=== PATIENT | male | born 1960 ===

== ENCOUNTER → 2020-08-29 | Outpatient (CLI) | payer OTHER ==
--- NOTE | 2020-08-29 11:11 | KCIC ---
MRI BRAIN WO Date: 08/29/2020 8:39 AM Indication: POST CONCUSSION SYNDROME/CERVICALGIA. Chronic neck pain and BROWN's since a fall with head trauma in 2019. Comparison: None. Technique: Multiplanar multisequence MRI of the brain was performed without intravenous contrast usin g the standard protocol. Findings: No acute infarct. No acute or chronic hemorrhage. The ventricles are normal in size and configuration without hydrocephalus. Minimal scattered FLAIR hyperintensities in the subcortical and periventricul ar deep white matter, a nonspecific finding, appropriate for patient age. The scalp and calvarium are normal. The pituitary and sella are normal. No Chiari malformation. The v isualized upper cervical spine is normal. The visualized orbits and globes are normal. Moderate right maxillary sinus mucosal thickening. Left maxillary sinus makes retention cysts. The mastoid air cells are clear. Left vertebral artery dolicho ectasia, 5 mm in diameter. IMPRESSION: No acute intracranial process. Electronically signed by: Andrea Peralta MD (08/29/2020 11:08 AM) [id number]
--- NOTE | 2020-08-29 11:18 | KCIC ---
MR CERVICAL SPINE WO DATE: 08/29/2020 8:39 AM INDICATION: POST CONCUSSION SYNDROME/CERVICALGIA. Chronic neck pain and BROWN's since a fall with head trauma in 2019. TECHNIQUE: Multiplanar multisequence magnetic resonance imaging of the cervical spine was performed w ithout administration of intravenous contrast using the standard cervical spine protocol. COMPARISON: None. FINDINGS: The cervical spine is normally aligned. No acute fracture. Mild multilevel degenerative disc desicca tion and disc height loss. Bone marrow signal intensity is normal. The spinal cord is normal in signal intensity. On the limited views of the cranial cavity and brain, the cerebellum and rich have normal morphology and signal characteristics. No Chiari malformation. No soft tissue abnormality. C2-3: No significant spinal canal stenosis or neural foraminal narrowing. C3-4: Disc osteophyte complex. Uncovertebral hypertrophy. Mild facet arthropathy. Mild neural foramin al narrowing. No spinal canal stenosis. C4-5: Disc osteophyte complex. Uncovertebral hypertrophy. Mild right facet arthropathy. Mild right ne ural foraminal narrowing. No spinal canal stenosis. C5-6: Disc osteophyte complex with central protrusion which abuts and deforms the ventral cord. Mild right facet arthropathy. Moderate right and mild left neural foraminal narrowing. Moderate spinal can al stenosis. C6-7: Disc osteophyte complex. Uncovertebral hypertrophy. Mild left neural foraminal narrowing. Mild spinal canal stenosis. C7-T1: No significant spinal canal stenosis or neural foraminal narrowing. IMPRESSION: Moderate cervical spondylosis, worst at C5-6 as detailed above. Electronically signed by: Adnrea Peralta MD (08/29/2020 11:15 AM) [id number]
== END ==
LOC: KCIC MRI 08:23
PROVIDERS: ATTEND Psychiatry & Neurology Neurology with Special Qualifications in Child Neurology
DX: M47.812 Spondylosis without myelopathy or radiculopathy, cervical region (principal); M50.222 Other cervical disc displacement at C5-C6 level; M25.78 Osteophyte, vertebrae; M89.38 Hypertrophy of bone, other site; M48.02 Spinal stenosis, cervical region; M12.88 Other specific arthropathies, not elsewhere classified, other specified site; J34.89 Other specified disorders of nose and nasal sinuses; F07.81 Postconcussional syndrome; J34.1 Cyst and mucocele of nose and nasal sinus
CPT/HCPCS: 70551; 72141